=== PATIENT | male | born 1945 | race Caucasian/White ===

== ENCOUNTER 2022-10-03 09:01 | Outpatient (RCR) | payer MEDICARE, SELFPAY ==
--- NOTE | 2022-10-03 09:46 | PTOPEVAL1 ---
Assessment and note entered by Gerson Lowe Evaluation Information Assessment Status Evaluation Diagnosis bilateral shoulder pain, left biceps tendinitis Onset 10/03/21 Subjective Information Pt. reports that he has had pain in his arms for at least 1 year. He states that pain is located at the front of both shoulders and down into the described bicep region. He reports that pain is worsened with reaching away from his body. He states that pain is relieved with rest. He states that pain intensity can vary week to week. He states that pain does not affect his sleep. He reports that he limits his heavier household activities due to pain. He reports that washing the car or any activities that he reaches away from his body will increase his pain. He reports that his goal is to decrease his bilateral shoulder pain. Reported Pain Level Pain Score 5: Self Report Assessment PT Clinical Summary Pt. is a 77 year old male who enters the clinic with bilateral shoulder pain. He is right hand dominant. He currently presents with impaired bilateral shoulder ROM, impaired bilateral shoulder strength and pain limiting functional movement. Continued skilled PT is indicated in order to improve these areas to allow for improved IADL performance. Plan of Care Interventions Hot Pack/Cold Pack,Manual Therapy,Neuro Re- education,Patient/Caregiver Educati,Therapeutic Activities,Therapeutic Exercise PT Services Indicated Yes Treatment Frequency and 2x/week x 10 visits Duration These treatments will address the objective and functional deficits as defined above. The patient will be advanced safely and appropriately in order for the patient to progress towards his/her prior level of function. Additional exercises will be introduced and as well as a comprehensive home exercise program upon discharge, if needed, ?to ensure carryover of functional gains achieved in the clinic. This treatment plan has been reviewed and agreement upon by the patient.
--- NOTE | 2022-11-03 12:23 | PTOPDC ---
Assessment and note entered by JT File, PT Evaluation Information Assessment Status Discharge Diagnosis bilateral shoulder pain, left biceps tendinitis Onset 10/03/21 Subjective Information patient reports he feels good this date. he reports the sharp pain he began coming to therapy for is now gone. he reports he is left with some soreness/ache in the shoulders with increased activities. Reported Pain Level Pain Score 2: Self Report Assessment PT Clinical Summary mr. meléndez presents to skilled PT services for his 10th skilled therapy visit. as of this date, he has met goals for rom, strength, and hep performance. he continues to have mm sorness/ache with increased activities, but is satisfied with the reduction of sharp pain and his functional strength now. he will DC skilled PT and continue with HEP independent at home. Plan of Care PT Services Indicated Yes
== END 2022-11-03 13:51 | disposition home or self-care (01) ==
LOC: CHSPT 09:01
PROVIDERS: PCP Family Medicine; Visit Provider Family Medicine
DX: M25.511 Pain in right shoulder (principal); M75.22 Bicipital tendinitis, left shoulder
CPT/HCPCS: 97110; 97140; 97161; 97530